=== PATIENT | female | born 1995 | race Caucasian/White ===

== ENCOUNTER → 2020-11-17 | Outpatient (REF) | payer BC | LOC: M PLALAB 08:04 | PROVIDERS: ATTEND Obstetrics & Gynecology | DX: O20.0 Threatened abortion (principal) ==

== ENCOUNTER → 2020-11-24 | Outpatient (REF) | payer BC ==
[2020-11-24 14:35] LABS: FREE T4 1.18 NG/DL (0.76-1.46); THYROID STIMULATING HORMONE 2.13 uIU/ML (0.358-3.740)
[2020-11-26 16:09] LABS: CARDIOLIPIN IGA ANTIBODY <9 APL U/mL (0-11); CARDIOLIPIN IGG ANTIBODY <9 GPL U/mL (0-14); CARDIOLIPIN IGM ANTIBODY <9 MPL U/mL (0-12); VITAMIN D 1,25 DIHYDROXY 38.3 pg/mL (19.9-79.3)
== END ==
LOC: M PLALAB 12:05
PROVIDERS: ATTEND Advanced Practice Midwife
DX: O03.9 Complete or unspecified spontaneous abortion without complication (principal); Z87.59 Personal history of other complications of pregnancy, childbirth and the puerperium; N96 Recurrent pregnancy loss

== ENCOUNTER → 2020-12-01 | Outpatient (CLI) | payer BC | LOC: M PLALAB 12:03 | PROVIDERS: ATTEND Obstetrics & Gynecology | DX: O03.9 Complete or unspecified spontaneous abortion without complication (principal) ==

== ENCOUNTER → 2021-04-03 | Outpatient (REF) | LOC: M LABSMTC 09:49 | PROVIDERS: ATTEND Pediatrics | DX: Z20.828 Contact with and (suspected) exposure to other viral communicable diseases (principal); Z11.59 Encounter for screening for other viral diseases ==

== ENCOUNTER → 2021-06-17 | Outpatient (CLI) | payer BC | LOC: M LAB 13:53 | PROVIDERS: ATTEND Obstetrics & Gynecology | DX: N91.2 Amenorrhea, unspecified (principal) ==

== ENCOUNTER → 2021-06-23 | Outpatient (CLI) | payer BC | LOC: M LAB 18:11 | PROVIDERS: ATTEND Obstetrics & Gynecology | DX: N91.2 Amenorrhea, unspecified (principal) ==

== ENCOUNTER → 2021-07-21 | Outpatient (CLI) | payer BC ==
--- NOTE | 2021-07-21 09:08 | REP ---
INDICATION: PREG, DATING/VIABILITY PT HAVING LABS FIRST. COMPARISON: None. TECHNIQUE: Real-time sonographic evaluation of gravid uterus performed utilizing transabdominal technique. FINDINGS: There is a single living intrauterine gestation, the estimated gestational age is 8 weeks 3 days based on a crown-rump length of 19 mm, EDC 02/27/2022. heart rate is 180 beats per minute. There is no subchorionic hemorrhage. The left ovary is visualized and is normal. The right ovary is not visualized. IMPRESSION: Single living intrauterine gestation 8 weeks 3 days gestational age, EDC 02/27/2022. heart rate 180 beats per minute. No subchorionic hemorrhage. <Electronically signed by Ezio Dunn > 07/21/21 0924
[2021-07-21 09:45] LABS: HEMATOCRIT 40.9 % (36.0-47.0); MEAN CORPUSCULAR HEMOGLOBIN 30.4 pg (27.0-33.0); MEAN CORPUSCULAR HGB CONC 34.2 g/dl (32.0-36.5); MEAN CORPUSCULAR VOLUME 88.9 fl (80.0-96.0); PLATELET COUNT, AUTOMATED 247 10^3/uL (150-450); WHITE BLOOD COUNT 8.8 10^3/uL (4.0-10.0)
[2021-07-21 10:31] LABS: HEPATITIS B SURFACE ANTIGEN NEGATIVE (NEGATIVE)
[2021-07-21 10:59] LABS: HIV 1&2 SCREEN CENTAUR NEGATIVE (NEGATIVE)
[2021-07-21 11:34] LABS: APPEARANCE, URINE HAZY (CLEAR); BACTERIA, URINE AUTO 1+ (NEGATIVE); BILIRUBIN, URINE AUTO NEGATIVE (NEGATIVE); BLOOD, URINE BLOOD NEGATIVE (NEGATIVE); COLOR, URINE YELLOW (YELLOW); GLUCOSE, URINE (UA) AUTO NEGATIVE (NEGATIVE); KETONE, URINE AUTO NEGATIVE (NEGATIVE); LEUKOCYTE ESTERASE, URINE AUTO NEGATIVE (NEGATIVE); MUCUS, URINE SMALL (NEGATIVE); NITRITE, URINE AUTO NEGATIVE (NEGATIVE); PROTEIN, URINE AUTO NEGATIVE (NEGATIVE); RBC, URINE AUTO 0 /HPF (0-3); SQUAMOUS EPITHELIAL CELL UR AU 2 /HPF (0-6); UROBILINOGEN, URINE AUTO 0.2 mg/dL (0.0-2.0); WBC, URINE AUTO 1 /HPF (0-3)
[2021-07-22 12:12] LABS: HERPES ZOSTER, VARICELLA IgG 445 index (Immune >165); LEAD BLOOD ADULT <1 ug/dL (0-4)
== END ==
LOC: M RAD 08:13 → M LAB 08:13
PROVIDERS: ATTEND Obstetrics & Gynecology
DX: Z34.90 Encounter for supervision of normal pregnancy, unspecified, unspecified trimester (principal); Z3A.08 8 weeks gestation of pregnancy

== ENCOUNTER → 2021-10-04 | Outpatient (CLI) | payer BC ==
--- NOTE | 2021-10-04 09:00 | REP ---
INDICATION: PREG, ANATOMY COMPARISON: 07/21/2021 TECHNIQUE: Transabdominal obstetrical ultrasound with color Doppler evaluation. FINDINGS: Examination demonstrates a single live intrauterine in variable presentation. motion is identified by technologist. Placenta is noted posterior and grade 0 without evidence for placenta previa or abruption. Amniotic fluid volume is normal. Cervix measures 4.7 cm in length and appears closed.. Selected gestational age: 19 weeks 1 day with HARMONY 02/27/2022. Gestational age by current measurements 19 weeks 1 day with HARMONY 02/27/2022. FHR equals 140 beats per minute. Estimated weight 277 grams (49thpercentile). Anatomical assessment demonstrates normal structures including cranium, choroid plexus, cavum, cerebellum/posterior fossa, facial features, lungs, four-chamber heart/ventricular outflow tracts, diaphragm, stomach, cord insertion/three-vessel cord, kidneys/bladder, spine, and extremities. IMPRESSION: Single live intrauterine in variable presentation. Anatomical assessment is complete and normal. <Electronically signed by Tonny Weir > 10/04/21 0811
== END ==
LOC: M RAD 07:34
PROVIDERS: ATTEND Obstetrics & Gynecology
DX: Z36.89 Encounter for other specified antenatal screening (principal); Z3A.19 19 weeks gestation of pregnancy

== ENCOUNTER → 2021-12-02 | Outpatient (CLI) | payer BC ==
[2021-12-02 10:01] LABS: HEMATOCRIT 36.5 % (36.0-47.0); HEMOGLOBIN 12.3 g/dl (12.0-15.5); MEAN CORPUSCULAR HEMOGLOBIN 30.7 pg (27.0-33.0); MEAN CORPUSCULAR HGB CONC 33.7 g/dl (32.0-36.5); PLATELET COUNT, AUTOMATED 277 10^3/uL (150-450); RED BLOOD COUNT 4.01 10^6/uL (4.00-5.40); WHITE BLOOD COUNT 10.6 10^3/uL (4.0-10.0)
[2021-12-02 12:51] LABS: GC DNA AMPLIFICATION NEGATIVE (NEGATIVE)
== END ==
LOC: M LAB 09:12
PROVIDERS: ATTEND Obstetrics & Gynecology
DX: Z34.92 Encounter for supervision of normal pregnancy, unspecified, second trimester (principal); Z3A.26 26 weeks gestation of pregnancy

== ENCOUNTER → 2021-12-15 | Outpatient (CLI) | payer BC | LOC: M RAD 08:09 | PROVIDERS: ATTEND Obstetrics & Gynecology | DX: O26.843 Uterine size-date discrepancy, third trimester (principal); Z3A.29 29 weeks gestation of pregnancy ==

== ENCOUNTER → 2022-01-30 | Outpatient (REF) | payer BC | LOC: M SFHCWAGY 09:49 | PROVIDERS: ATTEND Obstetrics & Gynecology | DX: Z36.85 Encounter for antenatal screening for Streptococcus B (principal) ==

== ENCOUNTER 2022-02-25 16:53 | Inpatient (IN) | payer BC ==
[2022-02-25] VITALS (18 sets, daily range): BP systolic 112–194; BP diastolic 59–136
[~2022-02-25] VITALS: Ht 170.2 cm; Wt 91.8 kg
[2022-02-25] MEDS ORDERED: MULTTAB20 PO (17:10)
[2022-02-25] MEDS ORDERED: HOME MED LIST COMPLETE! XX SCH (17:15)
[2022-02-25] MEDS ORDERED: LACTATED RINGER'S 1000 ML IV STA (17:36)
[2022-02-25] MEDS ORDERED: LR 1,000 ML IV SCH (17:40)
[2022-02-25 18:19] LABS: HEMATOCRIT 41.3 % (36.0-47.0); HEMOGLOBIN 14.3 g/dl (12.0-15.5); MEAN CORPUSCULAR HEMOGLOBIN 30.6 pg (27.0-33.0); MEAN CORPUSCULAR HGB CONC 34.6 g/dl (32.0-36.5); MEAN CORPUSCULAR VOLUME 88.2 fl (80.0-96.0); PLATELET COUNT, AUTOMATED 269 10^3/uL (150-450); RED BLOOD COUNT 4.68 10^6/uL (4.00-5.40); WHITE BLOOD COUNT 17.6 10^3/uL (4.0-10.0)
[2022-02-25 18:33] LABS: ALT/SGPT 48 U/L (12-78); BILIRUBIN,TOTAL 0.6 MG/DL (0.2-1.0); GLOMERULAR FILTRATION RATE > 60.0 (>60); LDH LACTATE DEHYDROGENASE 188 U/L (84-246); URIC ACID 3.5 MG/DL (2.6-6.0)
[2022-02-25] MEDS ORDERED: OXYTOCIN 30 UNITS IN 0.9% NaCl 500ML IV BAG (J2590) As Ordered ONE (21:03)
[2022-02-25] MEDS ORDERED: OXYTOCIN DRIP 30 UNITS in IV 1 EA IV SCH (22:04)
[2022-02-25] MEDS ORDERED: DOCUSATE SODIUM 100MG CAPSULE PO PRN (22:20)
[2022-02-25] MEDS ORDERED: ACETAMINOPHEN TAB 650MG DOSE (2X325MG) PO PRN (22:20)
[2022-02-25] MEDS ORDERED: ACETAMINOPHEN 500 MG TAB PO PRN (22:20)
[2022-02-25] MEDS ORDERED: METHYLERGONOVINE MALEATE 0.2 MG TAB PO PRN (22:20)
[2022-02-25] MEDS ORDERED: IBUPROFEN 600MG TAB PO PRN (22:20)
[2022-02-25] MEDS ORDERED: IBUPROFEN 800 MG TAB PO PRN (22:20)
[2022-02-25] MEDS ORDERED: RHOGAM 300 MCG (1500 IU) INJ (J2790) IM SCH (22:20)
[2022-02-25] MEDS ORDERED: MEASLES,MUMPS,RUBELLA VACCINE INJ (MMR-II) (90707) SC SCH (22:20)
[2022-02-26 06:00] VITALS: BP 138/85
[2022-02-26] MEDS: PRENATAL VITAMINS CHEWABLE TABLET PO SCH (09:14)
[2022-02-26 18:00] VITALS: BP 128/71
[2022-02-27 06:00] VITALS: BP 120/66
[2022-02-27 07:24] VITALS: BP 120/66
[2022-02-27] MEDS: PRENATAL VITAMINS CHEWABLE TABLET PO SCH (10:25)
[2022-02-27] MEDS ORDERED: IBUP80TA PO (10:38)
[2022-02-27] MEDS ORDERED: ACET-683 PO (10:38)
== END 2022-02-27 11:45 | disposition home or self-care (01) | DRG 560 ==
LOC: M LDO 16:53 → M LDI 17:43 → M OBS 23:44
PROVIDERS: ADMIT Obstetrics & Gynecology; ATTEND Obstetrics & Gynecology
PROC: 10E0XZZ Delivery of Products of Conception, External Approach (ICD-10-PCS; principal; 2022-02-25)
DX: O80 Encounter for full-term uncomplicated delivery (principal); Z37.0 Single live birth; Z3A.39 39 weeks gestation of pregnancy

== ENCOUNTER → 2023-05-21 | Outpatient (CLI) | payer BC ==
[~2023-05-21] MED LIST: ACET-683 PO; IBUP80TA PO; MULTTAB20 PO
[2023-05-21 17:38] LABS: HEMATOCRIT 39.7 % (36.0-47.0); HEMOGLOBIN 13.6 g/dl (12.0-15.5); MEAN CORPUSCULAR HEMOGLOBIN 30.6 pg (27.0-33.0); MEAN CORPUSCULAR HGB CONC 34.3 g/dl (32.0-36.5); MEAN CORPUSCULAR VOLUME 89.4 fl (80.0-96.0); PLATELET COUNT, AUTOMATED 269 10^3/uL (150-450); RED BLOOD COUNT 4.44 10^6/uL (4.00-5.40); WHITE BLOOD COUNT 9.2 10^3/uL (4.0-10.0)
[2023-05-21 18:36] LABS: HIV 1&2 SCREEN NEGATIVE (NEGATIVE)
[2023-05-21 18:43] LABS: HEPATITIS C VIRUS ABY INDEX 0.09 INDEX (<0.8)
[2023-05-21 19:08] LABS: GC DNA AMPLIFICATION NEGATIVE (NEGATIVE)
== END ==
LOC: M PLALAB 15:50
PROVIDERS: ATTEND Obstetrics & Gynecology
DX: O09.521 Supervision of elderly multigravida, first trimester (principal); Z36.9 Encounter for antenatal screening, unspecified

== ENCOUNTER → 2023-07-18 | Outpatient (CLI) | payer BC | LOC: M RAD 08:10 | PROVIDERS: ATTEND Obstetrics & Gynecology | DX: O32.1XX0 Maternal care for breech presentation, not applicable or unspecified (principal); Z3A.21 21 weeks gestation of pregnancy ==

== ENCOUNTER → 2023-09-19 | Outpatient (CLI) | payer BC ==
[2023-09-19 10:28] LABS: HEMATOCRIT 36.4 % (36.0-47.0); HEMOGLOBIN 12.3 g/dl (12.0-15.5); MEAN CORPUSCULAR HEMOGLOBIN 30.9 pg (27.0-33.0); MEAN CORPUSCULAR HGB CONC 33.8 g/dl (32.0-36.5); MEAN CORPUSCULAR VOLUME 91.5 fl (80.0-96.0); PLATELET COUNT, AUTOMATED 262 10^3/uL (150-450); RED BLOOD COUNT 3.98 10^6/uL (4.00-5.40); WHITE BLOOD COUNT 9.3 10^3/uL (4.0-10.0)
== END ==
LOC: M LAB 08:30
PROVIDERS: ATTEND Advanced Practice Midwife
DX: Z34.82 Encounter for supervision of other normal pregnancy, second trimester (principal)

== ENCOUNTER → 2023-11-15 | Outpatient (REF) | payer BC | LOC: M PLALAB 11:03 | PROVIDERS: ATTEND Obstetrics & Gynecology | DX: Z36.89 Encounter for other specified antenatal screening (principal); Z3A.36 36 weeks gestation of pregnancy ==

== ENCOUNTER → 2024-08-19 | Outpatient (REF) | payer BC ==
[~2024-08-19] MED LIST changes: +COLA100C5 PO; +IBUP-1022 PO
== END ==
LOC: M PLALAB 09:09
PROVIDERS: ATTEND Nurse Practitioner Family
DX: Z12.4 Encounter for screening for malignant neoplasm of cervix (principal)
CPT/HCPCS: 87624; G0123

== ENCOUNTER → 2025-02-02 | Outpatient (REF) | payer BC ==
[2025-02-02 13:32] LABS: APPEARANCE, URINE HAZY (CLEAR); BACTERIA, URINE AUTO 1+ (NEGATIVE); BILIRUBIN, URINE AUTO NEGATIVE (NEGATIVE); BLOOD, URINE BLOOD 2+ (NEGATIVE); COLOR, URINE YELLOW (YELLOW); GLUCOSE, URINE (UA) AUTO NEGATIVE (NEGATIVE); KETONE, URINE AUTO NEGATIVE (NEGATIVE); LEUKOCYTE ESTERASE, URINE AUTO 3+ (NEGATIVE); MUCUS, URINE SMALL (NEGATIVE); NITRITE, URINE AUTO NEGATIVE (NEGATIVE); PROTEIN, URINE AUTO NEGATIVE (NEGATIVE); RBC, URINE AUTO 6 /HPF (0-3); SPECIFIC GRAVITY URINE AUTO 1.005 (1.002-1.035); SQUAMOUS EPITHELIAL CELL UR AU 1 /HPF (0-6); UROBILINOGEN, URINE AUTO 0.2 mg/dL (0.0-2.0); WBC, URINE AUTO 149 /HPF (0-3)
== END ==
LOC: M LAB REF 12:37
PROVIDERS: ATTEND Physician Assistant Medical
DX: N39.0 Urinary tract infection, site not specified (principal)

== ENCOUNTER → 2025-07-09 | Outpatient (CLI) | payer BC ==
[~2025-07-09] MED LIST changes: -IBUP-1022 PO; +IBUP600T42 PO
[2025-07-09 15:37] LABS: PLATELET COUNT, AUTOMATED 291 10^3/uL (150-450)
[2025-07-09 16:34] LABS: HIV 1&2 SCREEN NEGATIVE (NEGATIVE)
[2025-07-09 16:38] LABS: Trichomonas vaginalis (AMP) NOT DETECTED (NEGATIVE)
[2025-07-09 16:43] LABS: HEPATITIS C VIRUS ABY INDEX 0.24 INDEX (<0.8)
[2025-07-09 17:01] LABS: GC DNA AMPLIFICATION NEGATIVE (NEGATIVE)
== END ==
LOC: M PLALAB 13:49
PROVIDERS: ATTEND Nurse Practitioner Family
DX: Z34.80 Encounter for supervision of other normal pregnancy, unspecified trimester (principal)

== ENCOUNTER → 2025-07-09 | Outpatient (REF) | payer BC | LOC: M PLALAB 13:30 | PROVIDERS: ATTEND Nurse Practitioner Family | DX: Z53.9 Procedure and treatment not carried out, unspecified reason (principal) ==

== ENCOUNTER → 2025-09-16 | Outpatient (CLI) | payer BC | LOC: M RAD 07:02 | PROVIDERS: ATTEND Nurse Practitioner Family | DX: Z34.82 Encounter for supervision of other normal pregnancy, second trimester (principal) ==

== ENCOUNTER → 2025-10-03 | Outpatient (CLI) | payer BC ==
[2025-10-03 10:10] LABS: PLATELET COUNT, AUTOMATED 284 10^3/uL (150-450)
[2025-10-03 10:35] LABS: GLUCOSE CHALLENGE TEST 1 HOUR 113 MG/DL (LESS THAN 140)
[2025-10-03 11:11] LABS: HIV 1&2 SCREEN NEGATIVE (NEGATIVE)
[2025-10-03 11:16] LABS: Trichomonas vaginalis (AMP) NOT DETECTED (NEGATIVE)
[2025-10-03 11:18] LABS: HEPATITIS C VIRUS ABY INDEX 0.12 INDEX (<0.8)
[2025-10-03 11:39] LABS: GC DNA AMPLIFICATION NEGATIVE (NEGATIVE)
== END ==
LOC: M LAB 08:12
PROVIDERS: ATTEND Obstetrics & Gynecology
DX: Z34.92 Encounter for supervision of normal pregnancy, unspecified, second trimester (principal)